=== PATIENT | female | born 1960 | race Caucasian/White ===

== ENCOUNTER 2018-07-27 14:08 | Emergency (ER) | payer SELFPAY ==
[2018-07-27 14:24] VITALS: BP 144/89; PULSE 94; RESP 20; TEMP 98.4; O2SAT 99
--- NOTE | 2018-07-27 14:42 | C.PDOC ---
Time Seen by Provider: 07/27/18 14:31 Chief Complaint (Nursing): Abnormal Skin Integrity Past Medical History Vital Signs: Last Vital Signs Temp 98.4 F 07/27/18 14:18 Pulse 94 H 07/27/18 14:18 Resp 20 07/27/18 14:18 BP 144/89 07/27/18 14:18 Pulse Ox 99 07/27/18 14:18 - Medical History PMH: Hypercholesterolemia - Social History Hx Tobacco Use: No Hx Alcohol Use: No Hx Substance Use: No - Immunization History Hx Tetanus Toxoid Vaccination: Yes Hx Influenza Vaccination: No Hx Pneumococcal Vaccination: Yes ED Course And Treatment O2 Sat by Pulse Oximetry: 99 Disposition Counseled Patient/Family Regarding: Diagnosis, Need For Followup - Disposition Referrals: [facility] [Outside] Disposition: HOME/ ROUTINE Disposition Time: 14:40 Condition: STABLE Prescriptions: Mupirocin 2% Ointment [Bactroban Ointment] 1 appl TD TID #1 tube Instructions: Surgical Wound (DC) Forms: [facility] ([place]), Gen Discharge Inst [place] - POA Present On Arrival: None - Clinical Impression Clinical Impression: Encounter for wound care
== END 2018-07-27 14:55 | disposition home or self-care (01) ==
LOC: C.ER 14:08
DX: Z51.89 Encounter for other specified aftercare (principal); E78.00 Pure hypercholesterolemia, unspecified